=== PATIENT | female | born 1925 | race Caucasian/White ===

== ENCOUNTER 2016-08-30 14:30 | Observation (INO) | payer MEDICARE ==
[~2016-08-30] VITALS: Ht 157.5 cm; Wt 74.9 kg
[2016-08-30 14:33] VITALS: PULSE 78; RESP 28; O2SAT 95
--- NOTE | 2016-08-30 14:46 | ED.REPORT ---
HPI-Chest Pain 40 and Over Date of Service Aug 30, 2016 ED Provider: Barak Milner MD An 89 year old female with a history of CHF, hypertension, hypothyroidism, arthritis, and dementia presents to the ED accompanied by her daughter with chest pain onset last night, waking her up. The pain lasted a short time but then returned more severely for approximately 10 minutes. The patient doesn't remember details about the pain. She has had multiple similar episodes over the past week. Her daughter reports that the patient has also been complaining of back pain, diaphoresis, nausea, and feeling cold constantly. She is pain free in the ED. Nursing Notes Stated Complaint: CHEST PAIN Chief Complaint: Chest Pain Nursing Notes Reviewed: Yes Allergies: Coded Allergies: Sulfa (Sulfonamide Antibiotics) (Verified Allergy, Severe, Anaphylaxis, ) codeine (Verified Allergy, Severe, Rash,Itching,SOB, 08/30/16) levofloxacin (Verified Adverse Reaction, Severe, Hallucinations, 08/30/16) memantine (Verified Adverse Reaction, Severe, severe hallucinations, ) Scheduled ([Laxative]) 5mg 10 MG PO HS Acetaminophen (Extra Strength Non-Aspirin) 500 Mg Tablet 1,000 MG PO QAM Acetaminophen (Extra Strength Non-Aspirin) 500 Mg Tablet 500 MG PO HS Ascorbate Calcium (Vitamin C) 500 Mg Tablet 1,000 MG PO HS Aspirin Chew (Aspirin Chew) 81 Mg Chew 81 MG PO DAILY Benazepril (Benazepril) 20 Mg Tablet 20 MG PO DAILY Cholecalciferol (Vitamin D3) (Vitamin D3) 50,000 Unit Capsule 50,000 UNIT PO WEEKLY Dicyclomine (Bentyl) 10 Mg Capsule 10 MG PO BID Docusate Sodium (Docusate Sodium) 250 Mg Capsule 250 MG PO HS Furosemide (Furosemide) 20 Mg Tab 20 MG PO DAILY Levothyroxine (Synthroid) 100 Mcg Tablet 100 MCG PO DAILY Propranolol ER (Innopran XL) 120 Mg Capsule 120 MG PO DAILY Ranitidine (Zantac) 150 Mg Tablet 150 MG PO DAILY Venlafaxine ER (Effexor XR) 150 Mg Capsule 150 MG PO DAILY General Time Seen by MD: 14:46 Chief Complaint Chest pain Hx Obtained From: Patient Arrived By: Walk-in Sudden in Onset?: Yes Onset Occurred: Yesterday Symptom Duration: 1 - 15 minutes Location: : Chest left: Chest right Quality: Painful Severity: Current: Moderate Severity: Maximum: Moderate Associated with: Reports: Diaphoresis, Nausea, Denies: Fever, Vomiting Pertinent Negative: Relieved by nothing Context Related History: Reports: Congestive heart failure, Hypertension Recent Healthcare: No recent doctor visit Similar Sx Previous: No Past Medical History Past Medical History CHF Hypertension Hypothyroidism Arthritis Dementia Past Surgical History Reports: Appendectomy, Cholecystectomy, Hysterectomy Smoking History Former Smoker Social History Moved to the area recently 08/30/2016 Other Social History: Good social support, From out of town ([place]) Ambulatory Status Independent Review of Systems Constitutional: Reports: Chills ("Feeling cold"), Denies: Fever Respiratory: Denies: Non-productive cough, Shortness of breath Cardiovascular: Reports: Chest pain GI: Reports: Nausea Musculoskeletal: Reports: Back pain Skin: Reports Diaphoresis Neurologic: Denies: Bladder dysfunction, Bowel dysfunction Complete sys rev & neg: except as marked. Physical Exam Initial Vital Signs Vital Signs (First) Date Time Temp Pulse Resp B/P Pulse Ox O2 Delivery O2 Flow Rate FiO2 08/30/16 14:33 36.1 78 28 95 Room Air 08/30/16 15:21 156/79 Initial VS: Reviewed Head / Eyes: Atraumatic, Normocephalic ENT: Conjunctiva normal, No scleral icterus Neck: Supple, Full range of motion Skin: Warm, Dry, No cyanosis Neurologic: Alert, Oriented, Nonfocal Psychiatric: Mood/affect normal, Behavior normal, Normal thought content General/Constitutional: Awake, Alert, No acute distress Respiratory / Chest: Breath sounds NL, Breath sounds = bilat, No respiratory distress Cardiovascular: Heart rate NL, Regular rhythm, Heart sounds NL Abdomen: Soft, Non-tender Interpretation & Diagnostics Lab Results Interpretation Result Diagram: 08/30/16 1506 08/30/16 1506 Test 08/30/16 15:06 White Blood Count 6.2th/mm3 (3.8-10.1) Red Blood Count 4.31mil/mm3 (3.90-5.20) Hemoglobin 13.4g/dL (12.0-15.6) Hematocrit 40.0% (35.0-46.0) Mean Corpuscular Volume 92.8fL (81-100) Mean Corpuscular Hemoglobin 31.1pg (27.0-35.0) Mean Corpuscular Hemoglobin Concent 33.5% (32.0-37.0) Red Cell Distribution Width 14.0% (12.3-15.4) Platelet Count 188bil/L (150-400) Neutrophils (%) (Auto) 57.8% (40-74) Lymphocytes (%) (Auto) 29.3% (14-46) Monocytes (%) (Auto) 9.4% (4-12) Eosinophils (%) (Auto) 2.8% (0-5) Basophils (%) (Auto) 0.5% (0-3) Prothrombin Time 10.3sec (8.1-12.5) Prothromb Time International Ratio 0.96ratio Sodium Level 138mEq/L (134-144) Potassium Level 4.2mEq/L (3.5-5.2) Chloride Level 101mEq/L (97-108) Carbon Dioxide Level 24mmol/L (18-29) Blood Urea Nitrogen 18mg/dL (8-27) Creatinine 0.99mg/dL (0.57-1.00) Estimat Glomerular Filtration Rate 76mL/min (>59) Glucose Level 89mg/dL (60-99) Calcium Level 9.1mg/dL (8.5-10.1) Magnesium Level 2.4mg/dL (1.6-2.6) Total Bilirubin 0.4mg/dL (0.0-1.2) Aspartate Amino Transf (AST/SGOT) 17U/L (0-50) Alanine Aminotransferase (ALT/SGPT) 14U/L (0-32) Alkaline Phosphatase 85U/L (25-165) Troponin T < 0.010ug/L (0.0-0.011) Pro-B-Type Natriuretic Peptide 796.5pg/mL (0-738) Total Protein 6.9g/dL (6.4-8.4) Albumin 3.9g/dL (3.4-5.0) ECG Interpretation ECG Interpretation: Atrial flutter rate 70 ST elevation, consider inferior injury Time: 14:47 Interpreted by: ED physician X-Ray Chest Interpretation Chest Xray Interpretation: IMPRESSION: No acute cardiopulmonary disease process. Dictated by: Madyson Ramos MD, PhD on 08/30/2016 at 15:35 View: Portable, 1 view Interpretation / Wet Read by: Interpret - Radiologist Re-Eval/Medical Decision Time of Eval: 16:02 Patient Status: Condition improved Re-Evaluation/Progress Note: Discussed with patient x-ray and lab results, diagnosis, and plan for admit. Patient agrees with plan for care and all questions were addressed. Consultation : Referral / Consult Name: Beth Sweeney MD Consulted With: Hospitalist Call Returned at: 16:26 Band Saw Runner: Agrees with eval, Agrees with plan, Accepts admit Counseled Regarding: Diagnosis, Lab results, Need for admission Discharge & Departure Primary Impression: Chest pain Chest pain type: other chest pain Qualified Code: R07.89 - Other chest pain Additional Impression: Atrial flutter Atrial flutter type: typical Qualified Code: I48.3 - Typical atrial flutter Disposition: ADMITTED TO HOSPITAL Discharge Condition All VS Reviewed: Yes Condition: Stable Referrals: Leopoldo Willingham Attestation Portions of this note were transcribed by Terri Flores. I, Dr. Milner, personally performed the history, physical exam, and medical decision-making; I reviewed and confirmed the accuracy of the information in the transcribed note. Signed by: Guillermo Villa, 08/30/2016, 16:35 copies to: Leopoldo Willingham Kirk H MD Aug 30, 2016 14:46 TERRI FLORES Aug 30, 2016 14:56
[2016-08-30] MEDS ORDERED: Nitroglycerin 2% 1 Gm Ointment TOPICAL ONE (15:00)
[2016-08-30 15:10] LABS: BASOPHILS % (AUTO) 0.5 % (0-3); EOSINOPHILS % (AUTO) 2.8 % (0-5); MONOCYTES % (AUTO) 9.4 % (4-12); Mean Corpuscular Hemoglobin 31.1 pg (27.0-35.0); Mean Corpuscular Volume 92.8 fL (81-100); NEUTROPHILS % (AUTO) 57.8 % (40-74); Platelet Count 188 bil/L (150-400)
[2016-08-30 15:21] VITALS: BP 156/79; PULSE 75; RESP 16; O2SAT 96
[2016-08-30 15:24] LABS: INR 0.96 ratio
--- NOTE | 2016-08-30 15:38 | DRSVH ---
PROCEDURE: X-RAY CHEST ONE VIEW, PORTABLE ([id number]) INDICATIONS: Chest pain TECHNIQUE: One view of the chest was acquired. COMPARISON: [facility], CR, XR CHEST 2VW, 09/18/2015, 15:48. FINDINGS: Surgical changes and devices: Cholecystectomy clips. 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 Lungs and pleura: No pleural effusions or pneumothorax. Lungs are clear. Mediastinum: Mediastinal contours appear normal. Heart size is normal. Bones and chest wall: S-shaped scoliosis of the thoracolumbar spine is noted. No suspicious bony lesi ons. Overlying soft tissues appear unremarkable. IMPRESSION: No acute cardiopulmonary disease process. Dictated by: Madyson Ramos MD, PhD on 08/30/2016 at 15:35 Approved by: Madyson Ramos MD, PhD on 08/30/2016 at 15:35
[2016-08-30 15:42] LABS: Magnesium 2.4 mg/dL (1.6-2.6)
[2016-08-30 15:47] LABS: TROPONIN T < 0.010 ug/L (0.0-0.011)
[2016-08-30] MEDS ORDERED: Alum-Mag Hydrox-Simeth 30 mL Suspension PO PRN (16:40)
[2016-08-30] MEDS ORDERED: Ondansetron 2 mg/mL 2 mL Inj IVPUSH PRN (16:40)
--- NOTE | 2016-08-30 16:40 | PCM.HPMED ---
Subjective Date of Service Aug 30, 2016 Primary Provider: Admitting Physician: Primary Care Physician: Leopoldo Willingham Attending Physician: Chief Complaint: Chest pain HISTORY was OBTAINED FROM PATIENT / MEDITECH NOTES History of present illness 82-year-old female with sternal chest pain/pressure that woke her up last night , Lasted 5 minutes and then lasted 15 minutes. Chest pain times 1-2 weeks per daughter, occurring more frequently. 1-2 weeks of indigestion and stomach pains despite chronic Zantac use. No EGD history In the ER, nitroglycerin paste/metoprolol 25/aspirin Atrial flutter 80s was self limiting, and currently sinus rhythm. Review of Systems - none of the following - F/C/sick contact / wt change/ HO / lightheaded / dizziness / sob / cough / cp / acid reflux / n/v/diarrhea / bleeding/bruising / leg swelling / change in voiding / yeast infections / rash Occasional palpitations FAMILY HX GERD-daughter SOCIAL HX former smoker MEDICATIONS Lasix 20 benazapril 20 Levothyroxine 100 propranolol 120 venlafaxine 150 Dicyclomine 10 twice a day Vitamin D 50,000 Zantac 150 aspirin 81 Past Medical/Surgical HX CHF hypertension Essential tremors GERD Cholecystectomy/appendectomy Urinary incontinence already seen by urologist Allergies Coded Allergies: Sulfa (Sulfonamide Antibiotics) (Verified Allergy, Severe, Anaphylaxis, ) codeine (Verified Allergy, Severe, Rash,Itching,SOB, 08/30/16) levofloxacin (Verified Adverse Reaction, Severe, Hallucinations, 08/30/16) memantine (Verified Adverse Reaction, Severe, severe hallucinations, ) PMH Social History Smoking Status: Former Smoker Exam Vital Signs Vital Sign - Last Date Time Temp Pulse Resp B/P Pulse Ox O2 Delivery O2 Flow Rate FiO2 08/30/16 15:21 75 16 156/79 96 Room Air 08/30/16 14:33 36.1 Lab and Diagnostics Labs Exam on admission NAD A and O x 3 mood affect WNL NC/AT no icterus no injected eyes EOMI PERRL /no pharyngeal lesions/ no oral lesions / hearing intact Supple neck CTAB equal chest rise / no accessory muscle use / speaks in full sentences / no rrw RRR S1 S2 / no mrg / 2+ radial pulses Soft nt nd + BS no hepatosplenomegaly No edema no cyanosis no ecchymosis of lower extremities No rash / no jaundice JUNIOR CNII-XII grossly intact symmetrical No dysmetria of bilateral upper and lower limbs /no asterixis/ Strength grossly intact of bilateral upper and lower limbs Sensation grossly symmetrical of bilateral upper and lower limbs EKG QTC CXR UA LFT Trop lactic acid procalcitonin Troponin negative at 3 PM BNP 796 INR 0.96 EKG A flutter 70 Chest x-ray PROCEDURE: X-RAY CHEST ONE VIEW, PORTABLE ([id number]) INDICATIONS: Chest pain TECHNIQUE: One view of the chest was acquired. COMPARISON: [facility], CR, XR CHEST 2VW, 09/18/2015, 15:48. FINDINGS: Surgical changes and devices: Cholecystectomy clips. RADIOLOGY TRANSCRIPTIONIST shunt catheter is unchanged in appearance. Lungs and pleura: No pleural effusions or pneumothorax. Lungs are clear. Mediastinum: Mediastinal contours appear normal. Heart size is normal. Bones and chest wall: S-shaped scoliosis of the thoracolumbar spine is noted. No suspicious bony lesions. Overlying soft tissues appear unremarkable. IMPRESSION: No acute cardiopulmonary disease process. Result Diagram: 08/30/16 1506 08/30/16 1506 Assessment & Plan Active issues and reason for admission Chest pain that wakes her up at night, confounding indigestion -- Aspirin morphine nitroglycerin oxygen -- Consider nuc med study in the morning, she is not nothing by mouth, Chronic GERD, acute Indigestion/abdominal ache despite Zantac -- Prior history of PPI but due to studies associated with side effects just on Zantac for several years -- Add Tums 3 times a day Chronic issues known prior to admission, present on admission CHF hypertension Essential tremors Urinary incontinence already seen by urologist -- Resume home medicines Diet cardiac DVT prophylaxis lovenox Code full Disposition OBS status . Assessment and plan were discussed with patient family. Beth Sweeney MD Aug 30, 2016 16:40
[2016-08-30] MEDS ORDERED: ACET-2561 PO ×2 (16:41)
[2016-08-30] MEDS ORDERED: BENA20TA PO (16:41)
[2016-08-30] MEDS ORDERED: ASPI81TA3 PO (16:41)
[2016-08-30] MEDS ORDERED: LEVO100T97 PO (16:41)
[2016-08-30] MEDS ORDERED: FUR20 PO (16:41)
[2016-08-30] MEDS ORDERED: ASCO-294 PO (16:41)
[2016-08-30] MEDS ORDERED: VENL150C PO (16:41)
[2016-08-30] MEDS ORDERED: CHOL500050 PO (16:41)
[2016-08-30] MEDS ORDERED: Laxative PO (16:41)
[2016-08-30] MEDS ORDERED: DOCU250C2 PO (16:41)
[2016-08-30] MEDS ORDERED: [UNRECOGNIZED DRUG - CODE] PO (16:41)
[2016-08-30] MEDS ORDERED: DICY10CA56 PO (16:41)
[2016-08-30] MEDS ORDERED: RANI150T11 PO (16:41)
--- NOTE | 2016-08-30 18:00 | NUR ---
Admission Patient arrived to unit via gurney. Patient alert to self/place on arrival, daughter accompanying. Patient has 1/2" nitro paste Lt chest. Denies current chest pain or shortness of breath. Patient has history of congestive heart failure, lower extremely edema, hypertension dementia. Patient did have atrial flutter in ER today. Patient cooperative, forgetful, pleasant.
[2016-08-30] MEDS ORDERED: Venlafaxine XR 75 mg ER24 Capsule PO ONE (18:10)
[2016-08-30 18:20] VITALS: BP 154/67; PULSE 67; RESP 18; O2SAT 100
[2016-08-30 18:23] VITALS: PULSE 60
[2016-08-30 19:56] LABS: APPEARANCE,URINE CLEAR (CLEAR,HAZY); COLOR,URINE YELLOW (YELLOW); OCCULT BLOOD,URINE NEGATIVE (NEGATIVE); PH,URINE 6.5 (5.0-8.0); UROBILINOGEN,URINE NORMAL (NORMAL)
[2016-08-30 21:51] VITALS: BP 138/71; PULSE 64; RESP 18; O2SAT 94
[2016-08-31 00:51] VITALS: BP 177/88; PULSE 72; RESP 20; O2SAT 94
--- NOTE | 2016-08-31 03:44 | NUR ---
Uneventful night Pt denies chest pain. Slept most of the night but set bed alarm off when trying to go to urinate. Bed alarm on for safety with frequent rounding. Nitro paste on all night.
[2016-08-31 05:30] VITALS: BP 149/68; PULSE 68; RESP 18; O2SAT 94
[2016-08-31 05:38] VITALS: PULSE 65
[2016-08-31 08:20] LABS: BASOPHILS % (AUTO) 0.6 % (0-3); EOSINOPHILS % (AUTO) 3.2 % (0-5); MONOCYTES % (AUTO) 7.8 % (4-12); Mean Corpuscular Hemoglobin 31.1 pg (27.0-35.0); NEUTROPHILS % (AUTO) 56.6 % (40-74); Platelet Count 165 bil/L (150-400)
[2016-08-31] MEDS ORDERED: Influenza (Adult) Vaccine 0.5 mL Syringe IM ONE (08:30)
[2016-08-31 10:16] VITALS: PULSE 70
[2016-08-31 10:35] VITALS: BP 154/68; PULSE 77; RESP 18; O2SAT 94
--- NOTE | 2016-08-31 13:17 | DRSVH ---
[facility] [address] [place] [place] [address] Echocardiogram Report Name: ABHILASH PALACIOS DStudy Date: 08/31/2016 Height: 62 in Hospital Exam Location: [facility] Weight: 165 lb Gender: Female BSA: 1.8 m2 : 1925 Age: 89 yrs BP: 149/65 mmHg Reason For Study: CHEST PAIN Ordering Physician: HOSPITALIST MITAerformed By: Jj Richardson Referring Physician: Arjun ALVA Interpretation Summary The left ventricular cavity is small. The ejection fraction is estimated to be 65-70%. There are no focal wall motion abnormalities. The right ventricle is normal in size and function. The right ventricular systolic pressure is estimated at 20 mmHg assuming a right atrial pressure of 3 mm Hg. There is no significant valvular heart disease. No other echocardiographic abnormalities seen. The etiology of this patients chest pain is not apparent on this echo exam. Procedure: A two-dimensional transthoracic echocardiogram with color flow and Doppler was performed. The study quality was technically adequate. There is no prior echocardiogram noted for this patient. The patient was in normal sinus rhythm during the exam. Left Ventricle: Left ventricular wall thickness is mildly increased. Proximal septal thickening is noted. The left ventricular cavity is small. A false chord is noted (normal variant). The ejection fraction is estimated to be 65-70%. There are no focal wall motion abnormalities. Assessment of diastolic parameters indicates a relaxation abnormality of the left ventricle, consistent with normal filling pressures. Right Ventricle: The right ventricle is normal in size and function. Atria: Both atria are normal in size. The interatrial septum is intact with no evidence for an atrial septal defect. The thickening of interatrial septum suggests lipomatous hypertrophy. Mitral Valve: There is mild mitral annular calcification. There is trace mitral regurgitation. Aortic Valve: The aortic valve is normal in structure and function. The aortic valve is trileaflet. The aortic valve opens well. No aortic regurgitation is present. Tricuspid Valve: The tricuspid valve is normal in structure and function. There is trace tricuspid regurgitation. The right ventricular systolic pressure is estimated at 20 mmHg assuming a right atrial pressure of 3 mm Hg. Pulmonic Valve: The pulmonic valve is not well visualized. Great Vessels: The aortic root is normal size. The dimensions of the ascending aorta are normal. The aortic arch is mildly enlarged. The pulmonary artery is normal size. The IVC is of normal diameter and collapses greater than 50% with a sniff. This suggests a low right atrial pressure of 3 mm Hg. Pericardium/ Pleura There is no pericardial effusion. There is no pleural effusion. MMode/2D Measurements & Calculations LVIDd: 3.7 cm LA dimension: 3.1 cm RA long axis Ao root diam LVIDs: 2.3 cm FS: 36.3 % LA A2 area: 18.5 cm RA area Aortic Jxn: 2.3 cm EPSS: 0.45 cm LA A4 area: 12.5 cm asc Aorta Diam IVSd: 0.97 cm LA length (vol) : 10.7 cm LVPWd: 1.1 cm RA vol Ao Arch Diam (Prox LA vol: 45.6 ml : 25.0 ml Trans): 3.2 cm LA vol index RA : 14.2 mm2 IVC diam: 1.6 cm LV herring. diameter/BSA LV sys. diameter/BSA (cm/m^2): 2.1 (cm/m^2): 1.3 Doppler Measurements & Calculations Ao V2 max MV E max julio cesar MV E/A: 0.64 TR max julio cesar: 208.5 cm/sec : 130.1 cm/sec : 58.1 cm/sec Med Peak E' Julio Cesar TR max P.4 mmHg Ao max PG MV A max julio cesar PA V2 max: 77.8 cm/sec : 6.8 mmHg : 90.1 cm/sec E/E' med: 9.9 PA mean P.7 mmHg Ao mean PG Pulm A Revs Dur PA Accel Time: 0.12 sec : 4.2 mmHg MV A dur: 0.13 sec MV dec time Ao V2 mean PA V2 mean Pulm A Revs Dur - MV A : 0.31 sec : 99.1 cm/sec : 62.3 cm/sec Dur: -0.02 msec Ao V2 VTI PA pr(Accel) : 28.6 cm : 26.6 mmHg Reading Physician:01:16 PM
[2016-08-31] MEDS ORDERED: PANT20TA2 PO (14:22)
--- NOTE | 2016-08-31 14:27 | NUR ---
EVANS and part D medication information provided to pt and her daughter/POA who is at bedside. CRISTINA signed by both, copy of info provided.
--- NOTE | 2016-08-31 14:44 | PCM.DIMED ---
Jessie Coronado DO 08/31/16 1437: Discharge Instructions Date of Service Aug 31, 2016 Dates of Hospitalization Aug 30, 2016 at 17:23 Discharge Diagnosis Discharge Diagnosis Chest pain -I suspect this is due to your acid reflux Chronic gastroesophageal reflux (GERD) Hypertension, chronic and stable Essential tremor, stable on propranolol Urinary incontinence, chronic and stable Medication Instructions In addition to your regular home medications, Take 1 tablet of pantoprazole by mouth 1-2 times daily. I recommend starting with 1 tablet daily for 2 days to see if this is controls the heartburn, if it does not, increase to taking 1 tablet twice daily (one tablet in the morning and a second tablet with dinner). You may discontinue the Zantac after 2 days if you find the pantoprazole to be controlling your heartburn. The prescription for pantoprazole has been sent electronically to [facility]'s pharmacy for you. Test Results Echocardiogram: Interpretation Summary The left ventricular cavity is small. The ejection fraction is estimated to be 65-70%. There are no focal wall motion abnormalities. The right ventricle is normal in size and function. The right ventricular systolic pressure is estimated at 20 mmHg assuming a right atrial pressure of 3 mm Hg. There is no significant valvular heart disease. No other echocardiographic abnormalities seen. The etiology of this patients chest pain is not apparent on this echo exam. Diet Other (Avoid alcohol, spicy foods, and citrus which can all potentially trigger reflux (heartburn)) Call your provider Fever or Chills, Shortness of breath, Bleeding, Chest pain (Severe, or different than the pain you have been having), Vomitting, Excessive diarrhea, Weakness (unilateral) Patient Instructions Follow-up plan Please call her primary care office to schedule a follow up appointment to be seen in 1-2 weeks. I recommend that you consider an EGD, this is a procedure in which a scope is used to look into the esophagus, stomach, and first part of the small bowel ( duodenum) to look for potential reasons why the heartburn is occurring and can be used to look for potential changes in the tissue due to the reflux (screens for cancer and pre-cancerous changes). If you are interested in an EGD, please ask your primary care physician to refer you to gastroenterology for one to be done. Follow-up Provider: Leopoldo Willingham Follow-up with PCP in: Other (1-2 weeks) Jordan Drake DO 08/31/16 1517: Discharge Instructions Attending's Statement read and agree Jessie Coronado DO Aug 31, 2016 14:37 Jordan Drake DO Aug 31, 2016 15:17
--- NOTE | 2016-08-31 15:13 | PCM.DC.MED ---
Discharge Summary Date of Service Aug 31, 2016 Dates of Hospitalization Date of Hospital Admission Aug 30, 2016 at 17:23 Date of Discharge: Aug 31, 2016 Providers: Admitting Physician: Beth Sweeney MD Primary Care Physician: Leopoldo Willingham Attending Physician: Beth Sweeney MD Diagnosis at Time of Discharge Diagnosis at Time of Discharge Chest pain -I suspect this is due to your acid reflux Chronic gastroesophageal reflux (GERD) Hypertension, chronic and stable Essential tremor, stable on propranolol Urinary incontinence, chronic and stable Atrial flutter, resolved Hypothyroidism, chronic and presumed stable Procedures XRay, CTs & MRIs Chest xray 08/30/16: FINDINGS: Surgical changes and devices: Cholecystectomy clips. DRY CLEANER HELPER shunt catheter is unchanged in appearance. Lungs and pleura: No pleural effusions or pneumothorax. Lungs are clear. Mediastinum: Mediastinal contours appear normal. Heart size is normal. Bones and chest wall: S-shaped scoliosis of the thoracolumbar spine is noted. No suspicious bony lesions. Overlying soft tissues appear unremarkable. IMPRESSION: No acute cardiopulmonary disease process. Dictated by: Madyson Ramos MD, PhD on 08/30/2016 at 15:35 Cardiac Echo Impression Transthoracic echocardiogram 08/31/2016: Interpretation Summary The left ventricular cavity is small. The ejection fraction is estimated to be 65-70%. There are no focal wall motion abnormalities. The right ventricle is normal in size and function. The right ventricular systolic pressure is estimated at 20 mmHg assuming a right atrial pressure of 3 mm Hg. There is no significant valvular heart disease. No other echocardiographic abnormalities seen. The etiology of this patients chest pain is not apparent on this echo exam. Brief History Per H&P by Dr Sweeney: 82-year-old female with sternal chest pain/pressure that woke her up last night , Lasted 5 minutes and then lasted 15 minutes. Chest pain times 1-2 weeks per daughter, occurring more frequently. 1-2 weeks of indigestion and stomach pains despite chronic Zantac use. No EGD history In the ER, nitroglycerin paste/metoprolol 25/aspirin Atrial flutter 80s was self limiting, and currently sinus rhythm. On the date of discharge, the patient, who has dementia, and her daughter discussed that her chest pain was associated with acid in the back of her mouth and burning sensation in the chest. She states that she used to get this same pain prior to taking Nexium which was discontinued when they saw things in the newspaper and on TV that it could cause electrolyte problems. Discussed with the patient, her daughter, and grand-daughter, that while PPIs are not benign, it seems like the potential benefit of controlling her symptoms may outweigh the risks. All 3 verbally expressed a desire for her to start PPI therapy again as the famotidine was not controlling her symptoms. Hospital Course The following were addressed during this hospitalization: Chest pain, resolved - Highly suspect this is due to her longstanding GERD for which she has not been on PPI therapy and had been inconsistent with H2 antagonist therapy ( noncompliant as it did not seem to provide relief) - Given the following at the ER: aspirin, morphine, nitroglycerin, and supplemental oxygen via nasal cannula - Chest xray without explanation - Echocardiogram without valvular or motion defect, normal EF - Three troponin levels < 0.010 Chronic GERD, stable - She has never had an EGD though she has had reflux for >30 years - Prior history of PPI therapy for years and was relatively asymptomatic with PPI use, worsening symptoms for 6 months while off PPI - Prescription for pantoprazole prescribed after discussion with the patient and her family - Highly recommend an outpatient referral to gastroenterology and consideration for an EGD Hypertension, chronic - Continued home dose of lisinopril - Monitored and stable Essential tremors - Continued home dosing of propranolol Hypothyroidism, chronic - TSH with free T4 ordered and pending at the time of discharge - Home levothyroxine dose given during this hospitalization Depression, Chronic and stable - Continue with venlafaxine at home dose DVT prophylaxis with Lovenox Heart healthy diet Exam Vital Signs (Last) Date Time Temp Pulse Resp B/P Pulse Ox O2 Delivery O2 Flow Rate FiO2 08/31/16 10:35 36.8 77 18 154/68 94 Room Air Exam On the date of discharge: General: Elderly female patient sitting up in bed conversing with her family upon my entering the room. No acute distress, comfortable appearing. Awake and alert. Hard of hearing. Oriented to person. Knows she is in a hospital, but states that she is in [place], [place] and does not know the year. HEENT: Moist mucus membranes, sclera anicteric Cardiac: RRR without murmur, rub, or gallop. No JVD Lungs: Moderate inspiratory effort. No wheezes, rales, or rhonchi Abdomen: Normoactive bowel tones. Soft, nontender, and nondistended. No hepatosplenomegaly Extremities: No clubbing, cyanosis, or edema bilaterally. There is a left distal upper extremity peripheral IV in place without erythema or infiltration. Psychiatric: Normal affect. Tangential historian. Forgetful. Test 08/30/16 15:06 08/30/16 18:01 08/30/16 19:39 08/30/16 21:30 Prothrombin Time 10.3sec (8.1-12.5) Prothromb Time International Ratio 0.96ratio Magnesium Level 2.4mg/dL (1.6-2.6) Total Bilirubin 0.4mg/dL (0.0-1.2) Aspartate Amino Transf (AST/SGOT) 17U/L (0-50) Alanine Aminotransferase (ALT/SGPT) 14U/L (0-32) Alkaline Phosphatase 85U/L (25-165) Pro-B-Type Natriuretic Peptide 796.5pg/mL (0-738) Total Protein 6.9g/dL (6.4-8.4) Albumin 3.9g/dL (3.4-5.0) Hold Urine Received (Received) Urine Color Yellow (YELLOW) Urine Appearance Clear (CLEAR,HAZY) Urine pH 6.5 (5.0-8.0) Urine Specific [facility] 1.015 (1.003-1.035) Urine Protein Negativemg/dL (NEG,TRACE) Urine Glucose (UA) Negativemg/dL (NEGATIVE) Urine Ketones Negativemg/dL (NEGATIVE) Urine Occult Blood Negative (NEGATIVE) Urine Nitrite Negative (NEGATIVE) Urine Bilirubin Negative (NEGATIVE) Urine Urobilinogen Normalmg/dL (NORMAL) Urine Leukocyte Esterase Negative (NEGATIVE) Urine RBC 0-2/hpf (0-2) Urine WBC 0-5/hpf (0-5) Urine Epithelial Cells None/hpf (NONE-MOD) Urine Crystals None seen (NONE SEEN) Urine Bacteria None/hpf (NONE-FEW) Urine Hyaline Casts None/lpf (NONE) Urine Granular Casts None seen (NONE SEEN) Urine Waxy Casts None seen (NONE SEEN) Urine Red Blood Cell Casts None seen (NONE SEEN) Urine White Blood Cell Casts None seen (NONE SEEN) Urine Mucus None seen (None Seen) Urine Trichomonas None seen (NONE SEEN) Urine Yeast None (NONE SEEN) Urinalysis Comment None Urine Culture Reflexed Not indicated Test 08/31/16 01:00 08/31/16 07:05 Troponin T 0.010ug/L (0.0-0.011) White Blood Count 4.7th/mm3 (3.8-10.1) Red Blood Count 4.27mil/mm3 (3.90-5.20) Hemoglobin 13.3g/dL (12.0-15.6) Hematocrit 39.7% (35.0-46.0) Mean Corpuscular Volume 93.0fL (81-100) Mean Corpuscular Hemoglobin 31.1pg (27.0-35.0) Mean Corpuscular Hemoglobin Concent 33.5% (32.0-37.0) Red Cell Distribution Width 14.1% (12.3-15.4) Platelet Count 165bil/L (150-400) Neutrophils (%) (Auto) 56.6% (40-74) Lymphocytes (%) (Auto) 31.6% (14-46) Monocytes (%) (Auto) 7.8% (4-12) Eosinophils (%) (Auto) 3.2% (0-5) Basophils (%) (Auto) 0.6% (0-3) Sodium Level 141mEq/L (134-144) Potassium Level 4.3mEq/L (3.5-5.2) Chloride Level 102mEq/L (97-108) Carbon Dioxide Level 27mmol/L (18-29) Blood Urea Nitrogen 20mg/dL (8-27) Creatinine 0.97mg/dL (0.57-1.00) Estimat Glomerular Filtration Rate 78mL/min (>59) Glucose Level 88mg/dL (60-99) Calcium Level 9.0mg/dL (8.5-10.1) Triglycerides Level 84mg/dL (0-149) Cholesterol Level 168mg/dL (100-199) LDL Cholesterol, Calculated 103.200mg/dL (0-99) VLDL Cholesterol 16.800mg/dL HDL Cholesterol 48mg/dL (>39) Cholesterol/HDL Ratio 3.50 (0.0-4.4) Discharge Medications Discharge Medications ([Laxative]) 5mg 10 MG PO HS (Reported) Acetaminophen (Extra Strength Non-Aspirin) 500 Mg Tablet 1,000 MG PO QAM ( Reported) Acetaminophen (Extra Strength Non-Aspirin) 500 Mg Tablet 500 MG PO HS (Reported ) Ascorbate Calcium (Vitamin C) 500 Mg Tablet 1,000 MG PO HS (Reported) Aspirin Chew (Aspirin Chew) 81 Mg Chew 81 MG PO DAILY (Reported) Benazepril (Benazepril) 20 Mg Tablet 20 MG PO DAILY (Reported) Cholecalciferol (Vitamin D3) (Vitamin D3) 50,000 Unit Capsule 50,000 UNIT PO WEEKLY (Reported) Dicyclomine (Bentyl) 10 Mg Capsule 10 MG PO BID (Reported) Docusate Sodium (Docusate Sodium) 250 Mg Capsule 250 MG PO HS (Reported) Furosemide (Furosemide) 20 Mg Tab 20 MG PO DAILY (Reported) Levothyroxine (Synthroid) 100 Mcg Tablet 100 MCG PO DAILY (Reported) Pantoprazole DR (Pantoprazole DR) 20 Mg Tablet.dr 20 MG PO BID Prescribed by: JESSIE CORONADO DO Propranolol ER (Innopran XL) 120 Mg Capsule 120 MG PO DAILY (Reported) Ranitidine (Zantac) 150 Mg Tablet 150 MG PO DAILY (Reported) Venlafaxine ER (Effexor XR) 150 Mg Capsule 150 MG PO DAILY (Reported) Additional med instructions In addition to your regular home medications, Take 1 tablet of pantoprazole by mouth 1-2 times daily. I recommend starting with 1 tablet daily for 2 days to see if this is controls the heartburn, if it does not, increase to taking 1 tablet twice daily (one tablet in the morning and a second tablet with dinner). You may discontinue the Zantac after 2 days if you find the pantoprazole to be controlling your heartburn. The prescription for pantoprazole has been sent electronically to [facility]'s pharmacy for you. Followup Plan Disposition: Home. Her granddaughter, who is an RN, lives nearby her and will be checking in on her and assisting her with scheduling follow up appointments. Follow-up plan Please call her primary care office to schedule a follow up appointment to be seen in 1-2 weeks. I recommend that you consider an EGD, this is a procedure in which a scope is used to look into the esophagus, stomach, and first part of the small bowel ( duodenum) to look for potential reasons why the heartburn is occurring and can be used to look for potential changes in the tissue due to the reflux (screens for cancer and pre-cancerous changes). If you are interested in an EGD, please ask your primary care physician to refer you to gastroenterology for one to be done. Discharge Diet: Other (Avoid alcohol, spicy foods, and citrus which can all potentially trigger reflux (heartburn)) Discharge Activity: No restrictions Follow-up Provider: Leopoldo Willingham Follow-up with PCP in: Other (1-2 weeks) Time spent 40 minutes Attending Statement I have seen and evaluated patient at bedside in addition to directly supervising care provided by resident physician. I agree with above documentation of discharge summary DC with PPI, indications for prompt FU reviewed. . Jessie Coronado DO Aug 31, 2016 15:12 Jordan Drake DO Sep 01, 2016 07:40
[2016-08-31 15:41] VITALS: BP 161/73; PULSE 74; RESP 18; O2SAT 94
--- NOTE | 2016-08-31 16:43 | NUR ---
Social Work: Initial Assessment / D/C Data: Pt is an 89 y/o female admitted for chest pain resolved. Pt's PCP is Dr Willingham, pt's insurance is Medicare [employer] supp. EMR reviewed. EXECUTIVE DIRECTOR met with pt and daughter at bedside, role explained. Pt's daughter state pt has severe dementia and that she provides all caregiving for pt at home. Pt lives with her daughter in [place], who is also her DPOA. Pt does not drive, has history with HH and SNF, no LTC or VA benefits, and is not a caregiver for another. No d/c planning needed at this time. EXECUTIVE DIRECTOR offered Senior Resource book and information on the [employer] for pt and her daughter to consider. EXECUTIVE DIRECTOR will continue to follow if needs arise. Assessment: Pt with dementia. Plan: Pt will d/c home via POV with daughter today. No d/c planning needed at this time. EXECUTIVE DIRECTOR offered Senior Resource book and information on the [employer] for pt and her daughter to consider. EXECUTIVE DIRECTOR will continue to follow if needs arise. YURIDIA Roe Addendum: 08/31/16 at 1647 by NICK TOLBERT Amended: Links added.
--- NOTE | 2016-08-31 17:41 | NUR ---
Discharge: Patient discharge to home @ approx 1740. IV d/c'd intact, telemetry removed, ballistic technician notified. Personal belongings sent home with patient. Reviewed new prescription, home medication list, d/c instructions, and follow up appointments with patient and family. Verbalized understanding. Patient escorted to main entrance via wheelchair accompanied by FOOD OPERATIONS MANAGER.
[2016-09-03 02:08] LABS: Free Thyroxine Index 3.3 (1.2-4.9)
== END 2016-08-31 17:42 | disposition home or self-care (01) ==
LOC: SED 14:30 → MPC 17:23
PROVIDERS: ADMIT Urology; ATTEND Urology
DX: R07.9 Chest pain, unspecified (principal); K21.9 Gastro-esophageal reflux disease without esophagitis; I10 Essential (primary) hypertension; G25.0 Essential tremor; R32 Unspecified urinary incontinence; I48.3 Typical atrial flutter; I50.9 Heart failure, unspecified; E03.9 Hypothyroidism, unspecified; M19.90 Unspecified osteoarthritis, unspecified site; F03.90 Unspecified dementia, unspecified severity, without behavioral disturbance, psychotic disturbance, mood disturbance, and anxiety; Z79.82 Long term (current) use of aspirin; Z87.891 Personal history of nicotine dependence; Z23 Encounter for immunization
CPT/HCPCS: 36415; 71010; 80048; 80053; 80061; 81000; 83735; 83880; 84436; 84479; 84484; 85025; 85610; 90471; 93005; 99285; C8929; G0378; J1650; Q2039